=== PATIENT | male | born 1955 | race African-American/Black ===

== ENCOUNTER 2017-02-05 22:01 | Emergency (ER) | payer SELFPAY | END 2017-02-06 01:30 | disposition left against medical advice (07) | LOC: ER 22:02 | DX: M54.5 Low back pain (principal); Z53.21 Procedure and treatment not carried out due to patient leaving prior to being seen by health care provider ==

== ENCOUNTER 2017-02-06 02:48 | Emergency (ER) | payer SELFPAY ==
[~2017-02-06] VITALS: Ht 152.4 cm; Wt 61.3 kg
[2017-02-06 03:19] VITALS: BP 119/86
== END 2017-02-06 05:49 | disposition left against medical advice (07) ==
LOC: ER 05:47
DX: Z53.21 Procedure and treatment not carried out due to patient leaving prior to being seen by health care provider (principal)

== ENCOUNTER 2017-02-06 20:51 | Emergency (ER) | payer SELFPAY ==
[~2017-02-06] VITALS: Ht 152.4 cm; Wt 62.0 kg
[2017-02-07] MEDS ORDERED: KETOROLAC 60MG/2ML VIAL IM ONE (03:15)
[2017-02-07 04:03] VITALS: BP 132/78
== END 2017-02-07 04:28 | disposition home or self-care (01) ==
LOC: ER 20:55
DX: S39.012A Strain of muscle, fascia and tendon of lower back, initial encounter (principal); F12.10 Cannabis abuse, uncomplicated; V43.52XA Car driver injured in collision with other type car in traffic accident, initial encounter; Y92.488 Other paved roadways as the place of occurrence of the external cause
CPT/HCPCS: 96372; 99283; J1885